=== PATIENT | female | born 1945 | race Caucasian/White ===

== ENCOUNTER 2019-05-27 08:42 | Emergency (ER) | payer MEDICARE, OTHER ==
[2019-05-27 09:15] VITALS: BP 148/79
--- NOTE | 2019-05-27 09:29 | UC ---
Respiratory Complaint HPI - HPI Summary HPI Summary: per scales inspector: "Starting 3 days ago with low grade fever, cough, weakness, wheezing, and her buttocks hurts. " -she is here w/ her friend Jatin. She said that she is normally very active and up doing house chore and riving. muscle aches started 3 days ago, suddenly, fels very weak. it is unusual for her to be so sedentary. Tmax 99 at home. no fever reducers taken today. dayquil did not help. -denies travel in past 14 days or any known covid exposure. -uses alb only prn bit only 1-2x in past few days. not on any other inhalers for copd. last cigg was 3 days ago. Her friend Criselda, her and kids help take care of her and look out for her. - History of Current Complaint Chief Complaint: UCGeneralIllness Stated Complaint: HEADACHE, BODY ACHES, COUGH Time Seen by Provider: 05/27/19 09:19 Pain Intensity: 8 - Allergies/Home Medications Allergies/Adverse Reactions: Allergies Allergy/AdvReac Type Severity Reaction Status Date / Time No Known Allergies Allergy Verified 05/27/19 09:15 Home Medications: Home Medications Albuterol HFA INHALER* [Ventolin HFA Inhaler*] 2 puff INH Q4H PRN 30 Days #1 mdi 05/27/19 [Rx] Albuterol HFA INHALER* [Ventolin HFA Inhaler*] 2 puff INH Q6H PRN 05/27/19 [ History Confirmed 05/27/19] Budesonide/Formote 80/4.5(NF) [Symbicort 80/4.5 (NF)] 1 puff INH BID #1 mdi [Rx] Losartan Potassium [Cozaar] 25 mg PO DAILY 05/27/19 [History Confirmed 05/27/19] Mirabegron [Myrbetriq] 50 mg PO DAILY 05/27/19 [History Confirmed 05/27/19] Oseltamivir CAP* [Tamiflu CAP*] 75 mg PO BID #10 cap 05/27/19 [Rx] PMH/Surg Hx/FS Hx/Imm Hx Previously Healthy: Yes Cardiovascular History: Hypertension Respiratory History: COPD - Surgical History Surgical History: Yes Surgery Procedure, Year, and Place: gallbladder. - Family History Known Family History: Positive: Hypertension - Social History Alcohol Use: None Substance Use Type: None Smoking Status (MU): Light Every Day Tobacco Smoker When Did the Patient Quit Smoking/Using Tobacco: 50 years Household Exposure Type: Cigarettes Review of Systems All Other Systems Reviewed And Are Negative: Yes Constitutional: Positive: Fever, Chills, Fatigue Skin: Positive: Negative. Negative: Rash Eyes: Positive: Negative ENT: Positive: Nasal Discharge. Negative: Sore Throat, Ear Ache Respiratory: Positive: Cough. Negative: Shortness Of Breath Cardiovascular: Positive: Negative. Negative: Palpitations, Chest Pain Gastrointestinal: Positive: Negative. Negative: Abdominal Pain, Vomiting, Diarrhea, Nausea Genitourinary: Negative: Urgency Motor: Positive: Negative, Weakness. Negative: Decreased ROM Neurovascular: Positive: Negative Musculoskeletal: Positive: Myalgia Neurological/Mental Status: Positive: Negative Psychological: Positive: Negative Is Patient Immunocompromised?: No Physical Exam Appearance: Ill-Appearing - sitting in rolling walker, initially tearful but consoable. appears tired. infrequent cough but very raspy when she does. she did become more alert as the time in UC improved. Vital Signs: Initial Vital Signs Temp 97.5 F 05/27/19 09:08 Pulse 74 05/27/19 09:08 Resp 16 05/27/19 09:08 BP 148/79 05/27/19 09:08 Pulse Ox 98 05/27/19 09:08 Vital Signs Reviewed: Yes Eye Exam: Normal Eyes: Positive: Conjunctiva Clear ENT: Positive: Pharyngeal erythema, Nasal drainage, TMs normal, Uvula midline. Negative: TM bulging, TM dull, TM red, Sinus tenderness Neck exam: Normal Neck: Positive: Supple, Nontender, No Lymphadenopathy Respiratory Exam: Normal Respiratory: Positive: No respiratory distress, No accessory muscle use, Decreased breath sounds. Negative: Crackles, Rhonchi, Stridor, Wheezing Cardiovascular Exam: Normal Cardiovascular: Positive: RRR Abdominal Exam: Normal Abdomen Description: Positive: Nontender, Soft Neurological: Positive: Fatigued Psychological Exam: Normal Skin Exam: Normal Skin: Negative: Rashes Respiratory Course/Dx - Course Course Of Treatment: + influenza A CXR - negative 74 yr old 50 yr smoker w/ + flu A w/ fatigue/weakness, cxr neg. she feels thats he is well enough to go home and that she has enough help. Criselda is very supportive and helpful and will make suuer she chekcs on her often. she should have a low threshold for taking her to the ER if worse or not better in next 12- 24 hours. They are very agreeable and understood me well. - Differential Dx/Diagnosis Differential Diagnosis/HQI/PQRI: Bronchitis, Exacerbation Of COPD, Influenza, Lower Resp Infection Provider Diagnosis: Influenza A Discharge ED - Sign-Out/Discharge Documenting (check all that apply): Patient Departure All imaging exams completed and their final reports reviewed: Yes - Discharge Plan Condition: Stable Disposition: HOME Prescriptions: Albuterol HFA INHALER* [Ventolin HFA Inhaler*] 2 puff INH Q4H PRN 30 Days #1 mdi PRN Reason: Cough Budesonide/Formote 80/4.5(NF) [Symbicort 80/4.5 (NF)] 1 puff INH BID #1 mdi Oseltamivir CAP* [Tamiflu CAP*] 75 mg PO BID #10 cap Patient Education Materials: Influenza (DC) Referrals: [facility],Radha Ann [Primary Care Provider] - Additional Instructions: Flu A is positive. We talked about going to the ER but you didnt think that was necessary at this time. Criselda said she will keep a close eye on you and you do have staff available for your help. Please go to the ER with any worsening conditions or not improving in the next 12-24 hours. Drink plenty of sips of water along w/ gatorade. Please call your PC on Wednesday for direction for further follow up. -Use the albuterol every 4-6 hrs as needed for symptomatic relief. The symbicort will help as well and you should talk to your PC about getting a baseline breathing test and taking symbicort or other inhalers for COPD. Make sure you rinse your mouth out well after each use to help avoid thrush. - Billing Disposition and Condition Condition: STABLE Disposition: Home
[2019-05-27 09:45] LABS: Influenza A Molecular POSITIVE (Negative)
== END 2019-05-27 11:08 | disposition home or self-care (01) ==
LOC: UCCORT 08:42
DX: J10.1 Influenza due to other identified influenza virus with other respiratory manifestations (principal); I10 Essential (primary) hypertension; R53.83 Other fatigue; J44.9 Chronic obstructive pulmonary disease, unspecified; Z79.899 Other long term (current) drug therapy; Z79.51 Long term (current) use of inhaled steroids; F17.210 Nicotine dependence, cigarettes, uncomplicated
CPT/HCPCS: 71046; 99202; G0463